=== PATIENT | male | born 1935 | race Caucasian/White ===

== ENCOUNTER 2016-09-19 07:57 | Day surgery (SDC) | payer OTHER ==
[2016-09-14 10:04] VITALS: BMI 28.8
[2016-09-19] MEDS ORDERED: ACETAMINOPHEN 500 MG TABLET (FP) PO PRN (08:59)
[2016-09-19] MEDS ORDERED: BACITRACIN 3.5 GM OPTHALMIC OINT TUBE ONE (09:11)
[2016-09-19] MEDS ORDERED: LIDOCAINE 1%/EPI 1:100000 (20 ML MULTI DOSE VIAL) ONE (09:12)
[2016-09-19] MEDS ORDERED: TETRACAINE 0.5% OPHTH SOLN 2 ML BOTTLE ONE (09:12)
[2016-09-19] MEDS ORDERED: POVIDONE-IODINE 5% OPHTHALMIC PREP 30 ML SOLUTION ONE (09:12)
[2016-09-19] MEDS ORDERED: BUPIVACAINE HCL/PF 0.5% (5MG/ML) 10 ML VIAL ONE (09:12)
[2016-09-19] MEDS ORDERED: PROPOFOL 20 ML ONE (09:15)
[2016-09-19] MEDS ORDERED: MIDAZOLAM HCL 2 MG/2 ML SINGLE DOSE VIAL ONE (09:15)
[2016-09-19] MEDS ORDERED: CLINDAMYCIN PHOSPHATE 600 MG/4 ML VIAL ONE (10:14)
[2016-09-19] MEDS ORDERED: LACTATED RINGERS SOLUTION 1,000 ML IV SCH (11:00)
[2016-09-19] MEDS ORDERED: ONDANSETRON 4 MG/2 ML VIAL IVPUSH PRN (11:16)
[2016-09-19] MEDS ORDERED: oxyCODONE HCL 5 MG TABLET PO PRN (11:16)
[2016-09-19] MEDS ORDERED: ACETAMINOPHEN 500 MG TABLET (FP) ONE (12:15)
[2016-09-19 17:23] VITALS: BP 124/70; PULSE 61; TEMP 97.9
--- NOTE | 2016-09-20 06:44 | OP ---
DATE OF OPERATION: 09/19/2016 PREOPERATIVE DIAGNOSIS: Involutional ectropion with epiphora, left lower lid. POSTOPERATIVE DIAGNOSIS: Involutional ectropion with epiphora, left lower lid. PROCEDURE: 1. Repair of ectropion, left lower lid, with lateral tarsal strip. 2. Conjunctivoplasty with inversion of punctum. 3. Minimal punctoplasty, left lower lid. 4. Quickert everting suture in nasal left lower lid. SURGEON: Isabella Cisneros MD ANESTHESIA: Local with sedation. COMPLICATIONS: None. ESTIMATED BLOOD LOSS: 1 to 2 mL. OPERATIVE REPORT: Patient was brought to the operating room, placed on the operating room table, vital signs monitored by Anesthesia. Tetracaine was placed in both eyes. Lateral canthal line was marked in left lateral canthus. The patient was given intravenous sedation after a timeout. A 50/50 mixture of 2% Xylocaine and 1:100,000 epinephrine and 0.5% Marcaine was injected subcutaneously in the lateral canthus down to the periosteum, lateral third of the upper and lower lid, and subconjunctivally in the nasal eyelid, a total of 2 to 3 mL. The patient was prepped and draped in usual sterile fashion, exposing both eyes. A lateral canthal incision was made with a 15 blade, carried down to the lateral orbital rim with a Lamar needle. The inferior cori of the lateral canthal tendon was from wound with sharp dissection. It was overlapped, marked with sterile marking pen, divided between anterior and posterior lamella. The anterior lamella was excised. The posterior lamella was denuded of epithelium posteriorly and superiorly. Then double-armed 5-0 Prolene reinforced with two 6-0 Vicryl lasso sutures was then passed through the tarsal strip and then through the orbital rim with the appropriate horizontal position made at the attachment of the superior cori and lateral canthal tendon. The lid was everted and a subpunctal conjunctiva retractor was excised with a Lamar needle. Below this, the retractors were then grasped with a double-armed 5-0 chromic, which was used to grasp the superior tarsal and then exited through the full-thickness eyelid nasally as a punctal inverting suture. This was tied. The lateral canthal angle was now reformed with a 5-0 chromic buried through the macdonald line of the upper and lower lid in a buried fashion, reforming the lateral canthus. The Prolene was tied, reattaching the lateral tarsal strip to the bone. Lateral to this, the muscle was closed with 5-0 chromic, and the skin was closed with interrupted 6-0 plain suture. There was a small tendency for eyelashes to rise up beyond the margin, and it could not be ascertained whether it was due to swelling or post-surgical change, therefore, double-armed 5-0 chromic was passed through the inferior fornix lateral to the punctum and then exited through the subciliary skin and was tied as a Quickert everting suture to reposition the lashes in a rather loose fashion. Bacitracin was placed in the eye and on the sutures in the nasal and temporal lower lid and lateral canthus, and the patient was taken to recovery room in stable condition. ISABELLA CISNEROS M.D. [id number]
--- NOTE | 2016-09-21 15:16 | PATH ---
Surgical Pathology Report Patient Name: BARRON ROMO JR [facility]. Rec. #: [id number] /Age/Gender: 1935 (Age: 81) / M Account: [id number] Location: [facility] AMBULATORY Taken: 09/19/2016 Received: 09/19/2016 Reported: 09/21/2016 Physicians: Gabriel Buchanan Specimen(s) Received ECTROPION LEFT LOWER EYELID Clinical History Ectropion left lower eyelid Final Diagnosis LEFT LOWER EYELID ECTROPION, REPAIR: FRAGMENT OF BENIGN SKIN. Electronically Signed Jung Marquez M.D. Gross Description Received in formalin labeled "ectropion left lower eyelid" is a 0.3 x 0.1 x 0.1 cm in irregular, unoriented skin fragment. The specimen is submitted in toto in one cassette. /09/20/201609/20/2016
== END 2016-09-19 12:50 | disposition home or self-care (01) ==
LOC: FASU 07:57
PROVIDERS: ATTEND Ophthalmology
PROC: 08SR0ZZ Reposition Left Lower Eyelid, Open Approach (ICD-10-PCS; principal; 2016-09-19 09:57)
DX: H02.105 Unspecified ectropion of left lower eyelid (principal); H04.202 Unspecified epiphora, left side
CPT/HCPCS: 88302-TC; 94760

== ENCOUNTER 2020-10-14 04:30 | Day surgery (SDC) | payer OTHER ==
[2020-10-11 10:31] VITALS: BMI 26.6
[2020-10-14] MEDS ORDERED: DEXMEDETOMIDINE HCL 200 MCG/2 ML IVPB ONE (06:50)
[2020-10-14] MEDS ORDERED: SUCCINYLCHOLINE CHLORIDE 200 MG/10 ML SYRINGE ONE ×2 (07:05→07:37)
[2020-10-14] MEDS ORDERED: KETAMINE HCL 200 MG/20 ML VIAL ONE (07:06)
[2020-10-14] MEDS ORDERED: PROPOFOL 20 ML ONE ×4 (07:06→08:39)
[2020-10-14] MEDS ORDERED: LIDOCAINE HCL/PF 2% SDV 5ML VIAL ONE (07:07)
[2020-10-14] MEDS ORDERED: HEPARIN NA (PORCINE) 5,000 UNITS/ML 1ML VIAL ONE (07:18)
[2020-10-14] MEDS ORDERED: LIDOCAINE HCL 1%, 10 MG/ML (20ML VIAL) ONE (07:19)
[2020-10-14] MEDS ORDERED: ceFAZolin SODIUM 1 GM VIAL IVPB ONE (07:58)
[2020-10-14] MEDS ORDERED: ceFAZolin SODIUM 1 GM VIAL ONE (07:58)
[2020-10-14] MEDS ORDERED: HEPARIN NA (PORCINE) 5,000 UNITS/ML 1ML VIAL IV ONE (08:07)
[2020-10-14] MEDS ORDERED: LIDOCAINE HCL 1%, 10 MG/ML (20ML VIAL) SQ ONE (08:08)
[2020-10-14] MEDS ORDERED: ONDANSETRON 4 MG/2 ML VIAL IVPUSH PRN (09:50)
[2020-10-14] MEDS ORDERED: oxyCODONE HCL 5 MG TABLET PO PRN ×2 (09:50)
[2020-10-14] MEDS ORDERED: CLOPIDOGREL BISULFATE 75 MG TABLET (FP) PO ONE (10:00)
[2020-10-14] MEDS ORDERED: LACTATED RINGERS SOLUTION 1,000 ML IV SCH (10:00)
[2020-10-14 10:25] VITALS: TEMP 97.8
[2020-10-14 11:45] VITALS: PULSE 66
[2020-10-14 11:51] VITALS: BP 166/84
== END 2020-10-14 11:40 | disposition home or self-care (01) ==
LOC: JASU-SURG 04:30
PROVIDERS: ATTEND Surgery Vascular Surgery
PROC: 047K3D1 Dilation of Right Femoral Artery with Intraluminal Device, using Drug-Coated Balloon, Percutaneous Approach (ICD-10-PCS; principal; 2020-10-14 07:30)
DX: I70.211 Atherosclerosis of native arteries of extremities with intermittent claudication, right leg (principal)
CPT/HCPCS: 37227; C1877; C2623; 76000-TC-FY; 94760; J1644

== ENCOUNTER 2022-11-10 06:25 | Inpatient (IN) | payer OTHER ==
[2022-11-10] MEDS ORDERED: ALBUTEROL SO4 2.5/IPRATROPIUM 0.5 INH SOL 3 ML VIAL.NEB. NEB ONE ×4 (06:28→06:49)
[2022-11-10 07:11] LABS: HEMATOCRIT 29.3 % (35.4-49); HEMOGLOBIN 9.2 GM/dL (11.7-16.9); MCH 28.4 pg (25.7-33.7); MCHC 31.5 g/dl (32.0-35.9); MEAN CELL VOLUME 90.3 fl (80-96); PLATELET COUNT 431 10^3/uL (134-434); RBC 3.24 M/mm3 (4.00-5.60); RDW 17.4 % (11.9-15.9)
[2022-11-10 07:12] LABS: VENOUS BASE EXCESS 4.7 mmol/L (-2-2); VENOUS O2 SATURATION 63.7 % (70-80); VENOUS PH 7.4 (7.310-7.410)
[2022-11-10 07:15] LABS: INR 1.88 (0.83-1.09); PROTHROMBIN TIME (PATIENT) 21.7 SEC (9.7-13.0)
[2022-11-10 07:18] LABS: ACTIVATED PTT 27.3 SECONDS (25.2-36.5)
[2022-11-10] MEDS ORDERED: VANCOMYCIN 1,000 MG in DEXTROSE 5%-WATER - 250 ML IVPB ONE (07:30)
[2022-11-10] MEDS ORDERED: CEFEPIME 2 GM in DEXTROSE 5%-WATER 100 ML IVPB ONE (07:30)
[2022-11-10] MEDS ORDERED: VANCOMYCIN 1 GRAM (PRE-DOCKED) 1,000 MG/250 ML BAG IVPB ONE (07:35)
[2022-11-10] MEDS ORDERED: CEFEPIME 2 GM/100 ML BAG IVPB ONE (07:35)
[2022-11-10] MEDS ORDERED: SODIUM CHLORIDE 0.9% 500 ML INFUS.BAG IV ONE (07:37)
[2022-11-10 07:48] LABS: POTASSIUM 4.7 mmol/L (3.5-5.1)
[2022-11-10 07:50] LABS: CALCIUM 8.3 mg/dL (8.5-10.1)
[2022-11-10 07:51] LABS: BLOOD UREA NITROGEN 38.8 mg/dL (7-18)
[2022-11-10 07:53] LABS: CREATININE 1.7 mg/dL (0.55-1.3)
[2022-11-10 07:55] LABS: BILIRUBIN,TOTAL 0.7 mg/dL (0.2-1)
[2022-11-10 07:57] LABS: LACTIC ACID 3.6 mmol/L (0.4-2.0)
[2022-11-10 08:23] LABS: PH,URINE 5.5 (5.0-8.0); URINE APPEARANCE CLEAR; URINE BILIRUBIN NEGATIVE (NEGATIVE); URINE COLOR YELLOW; URINE GLUCOSE (UA) NEGATIVE (NEGATIVE); URINE KETONE NEGATIVE (NEGATIVE); URINE LEUK ESTERASE NEGATIVE (NEGATIVE); URINE NITRITE NEGATIVE (NEGATIVE); URINE PROTEIN TRACE (NEGATIVE); URINE UROBILINOGEN 0.2 mg/dL (0.2-1.0)
[2022-11-10 08:27] LABS: N-TERMINAL BNP 4512.4 pg/ml (5-450)
[2022-11-10] MEDS ORDERED: AMIODARONE HCL 200 MG TABLET PO ONE (08:30)
[2022-11-10] MEDS ORDERED: METOPROLOL TARTRATE 25 MG TABLET (FP) PO ONE (08:54)
[2022-11-10] MEDS ORDERED: AMIODARONE HCL 200 MG TABLET ONE (08:56)
[2022-11-10] MEDS ORDERED: METOPROLOL TARTRATE 25 MG TABLET (FP) ONE (08:59)
[2022-11-10 09:10] LABS: ANISOCYTOSIS 1+; MACROCYTOSIS 1+
[2022-11-10 10:12] LABS: LACTIC ACID 3.1 mmol/L (0.4-2.0)
[2022-11-10] MEDS: HEPARIN NA (PORCINE) 5,000 UNITS/ML 1ML VIAL SQ SCH ×2 (14:45→22:46)
[2022-11-10] MEDS: CEFEPIME 1 GM in DEXTROSE 5%-WATER 100 ML IVPB SCH (22:47)
[2022-11-11] MEDS: HEPARIN NA (PORCINE) 5,000 UNITS/ML 1ML VIAL SQ SCH ×3 (06:10→23:03)
[2022-11-11 07:21] LABS: HEMOGLOBIN 8.3 GM/dL (11.7-16.9); MCHC 30.9 g/dl (32.0-35.9); MEAN CELL VOLUME 90.6 fl (80-96); MEAN PLT VOLUME 8.7 fl (7.5-11.1); PLATELET COUNT 329 10^3/uL (134-434); RBC 2.98 M/mm3 (4.00-5.60); RDW 17.4 % (11.9-15.9); WHITE BLOOD COUNT 21.4 K/mm3 (4.0-10.0)
[2022-11-11 07:39] LABS: POTASSIUM 4.2 mmol/L (3.5-5.1)
[2022-11-11 07:44] LABS: CALCIUM 8.3 mg/dL (8.5-10.1)
[2022-11-11 07:45] LABS: ALBUMIN 2.8 g/dl (3.4-5.0); BLOOD UREA NITROGEN 38.2 mg/dL (7-18); MAGNESIUM 2.5 mg/dL (1.8-2.4)
[2022-11-11 07:47] LABS: CREATININE 1.4 mg/dL (0.55-1.3)
[2022-11-11 07:48] LABS: BILIRUBIN,TOTAL 0.6 mg/dL (0.2-1)
[2022-11-11 07:49] LABS: TOT PROT 5.6 g/dl (6.4-8.2)
[2022-11-11] MEDS: CLOPIDOGREL BISULFATE 75 MG TABLET (FP) PO SCH (09:37)
[2022-11-11] MEDS: CEFEPIME 1 GM in DEXTROSE 5%-WATER 100 ML IVPB SCH ×2 (09:38→22:59)
[2022-11-11 11:00] LABS: ANISOCYTOSIS 0; HELMET CELLS 0; HOWELL-JOLLY BODIES 0; MACROCYTOSIS 0; OVALOCYTE 0; ROULEAU 0; SICKELED CELLS 0; TARGET CELLS 0; TEAR DROP CELLS 0; TOXIC GRANULATION 0
[2022-11-11] MEDS: METOPROLOL TARTRATE 5 MG/5 ML VIAL IVPUSH PRN (11:37)
[2022-11-11 12:13] LABS: ARTERIAL BLD GAS O2 SATURATION 91.9 % (95-98); ARTERIAL BLOOD GAS BASE EXCESS 4.4 mmol/L (-2-2); ARTERIAL BLOOD GAS PO2 62.5 mmHg (80-100); ARTERIAL BLOOD GAS pH 7.407 (7.350-7.450)
[2022-11-11 12:14] LABS: ALLENS TEST POSITIVE
[2022-11-11 12:15] LABS: VENT MODE S/T; VENT RATE 15
[2022-11-11] MEDS: VANCOMYCIN/WATER FOR INJ (PEG) 1,000 MG/200 ML BAG IVPB SCH (13:29)
[2022-11-11 23:59] VITALS: BMI 22.0
[2022-11-12] MEDS: HEPARIN NA (PORCINE) 5,000 UNITS/ML 1ML VIAL SQ SCH ×3 (07:32→21:53)
[2022-11-12] MEDS: METOPROLOL TARTRATE 5 MG/5 ML VIAL IVPUSH PRN (08:04)
[2022-11-12] MEDS: CEFEPIME 1 GM in DEXTROSE 5%-WATER 100 ML IVPB SCH ×2 (09:31→21:53)
[2022-11-12] MEDS: BACITRACIN ZINC 15 GM TUBE TOPICAL OINTMENT TP SCH (09:35)
[2022-11-12] MEDS: CLOPIDOGREL BISULFATE 75 MG TABLET (FP) PO SCH (09:36)
[2022-11-12] MEDS: MULTIVITAMINS (DAILY MVI) TABLET (FP) PO SCH (09:36)
[2022-11-12] MEDS: VANCOMYCIN/WATER FOR INJ (PEG) 1,000 MG/200 ML BAG IVPB SCH (12:04)
[2022-11-12] MEDS ORDERED: FUROSEMIDE 40 MG/4 ML INJECTABLE VIAL IVPUSH ONE (13:26)
[2022-11-12] MEDS ORDERED: ACETAMINOPHEN 500 MG TABLET (FP) PO ONE (22:37)
[2022-11-12] MEDS: MELATONIN 5 MG TABLETS PO PRN (22:50)
[2022-11-13] MEDS: HEPARIN NA (PORCINE) 5,000 UNITS/ML 1ML VIAL SQ SCH ×3 (06:22→21:28)
[2022-11-13 08:12] LABS: POTASSIUM 4.7 mmol/L (3.5-5.1)
[2022-11-13 08:14] LABS: ALBUMIN 2.4 g/dl (3.4-5.0); CALCIUM 8.7 mg/dL (8.5-10.1)
[2022-11-13 08:17] LABS: CREATININE 2.1 mg/dL (0.55-1.3)
[2022-11-13 08:19] LABS: BILIRUBIN,TOTAL 0.8 mg/dL (0.2-1); TOT PROT 5.4 g/dl (6.4-8.2)
[2022-11-13 08:25] LABS: HEMATOCRIT 30.5 % (35.4-49); MCH 27.1 pg (25.7-33.7); MCHC 29.5 g/dl (32.0-35.9); MEAN CELL VOLUME 91.9 fl (80-96); MEAN PLT VOLUME 9.4 fl (7.5-11.1); PLATELET COUNT 328 10^3/uL (134-434); RBC 3.32 M/mm3 (4.00-5.60); RDW 19.3 % (11.9-15.9)
[2022-11-13 08:38] LABS: BLOOD UREA NITROGEN 73.1 mg/dL (7-18)
[2022-11-13 08:46] LABS: WHITE BLOOD COUNT 36.3 K/mm3 (4.0-10.0)
[2022-11-13] MEDS: CEFEPIME 1 GM in DEXTROSE 5%-WATER 100 ML IVPB SCH (09:10)
[2022-11-13] MEDS: MULTIVITAMINS (DAILY MVI) TABLET (FP) PO SCH (09:11)
[2022-11-13] MEDS: CLOPIDOGREL BISULFATE 75 MG TABLET (FP) PO SCH (09:11)
[2022-11-13 09:45] LABS: ANISOCYTOSIS 1+; MACROCYTOSIS 0
[2022-11-13] MEDS: BACITRACIN ZINC 15 GM TUBE TOPICAL OINTMENT TP SCH (11:04)
[2022-11-13] MEDS: MEROPENEM 1 GM in DEXTROSE 5%-WATER 100 ML IVPB SCH ×2 (12:29→21:28)
[2022-11-13] MEDS ORDERED: FUROSEMIDE 40 MG/4 ML INJECTABLE VIAL IVPUSH ONE (13:00)
[2022-11-13] MEDS: MELATONIN 5 MG TABLETS PO PRN (21:30)
[2022-11-14] MEDS: HEPARIN NA (PORCINE) 5,000 UNITS/ML 1ML VIAL SQ SCH (06:24)
[2022-11-14 07:59] LABS: POTASSIUM 4.8 mmol/L (3.5-5.1)
[2022-11-14 08:04] LABS: CALCIUM 8.8 mg/dL (8.5-10.1)
[2022-11-14 08:05] LABS: ALBUMIN 2.6 g/dl (3.4-5.0); BLOOD UREA NITROGEN 90.9 mg/dL (7-18)
[2022-11-14 08:07] LABS: CREATININE 2.5 mg/dL (0.55-1.3); HEMATOCRIT 31.3 % (35.4-49); HEMOGLOBIN 9.4 GM/dL (11.7-16.9); MCH 27.4 pg (25.7-33.7); MCHC 29.9 g/dl (32.0-35.9); MEAN CELL VOLUME 91.7 fl (80-96); MEAN PLT VOLUME 9.6 fl (7.5-11.1); PLATELET COUNT 314 10^3/uL (134-434); RBC 3.42 M/mm3 (4.00-5.60); RDW 20.5 % (11.9-15.9)
[2022-11-14 08:08] LABS: BILIRUBIN,TOTAL 0.7 mg/dL (0.2-1); TOT PROT 5.8 g/dl (6.4-8.2)
[2022-11-14 08:40] LABS: WHITE BLOOD COUNT 35.5 K/mm3 (4.0-10.0)
[2022-11-14] MEDS ORDERED: PROPOFOL 1,000,000 MCG/100 ML VIAL IVPB SCH (08:45)
[2022-11-14] MEDS ORDERED: SODIUM CHLORIDE 500 ML IV STA (09:20)
[2022-11-14] MEDS ORDERED: AMIODARONE IN DEXTROSE,ISO-OSM 150 MG/100 ML BAG IVPB ONE (09:45)
[2022-11-14 09:53] LABS: INR 1.66 (0.83-1.09); PROTHROMBIN TIME (PATIENT) 19.2 SEC (9.7-13.0)
[2022-11-14 09:56] LABS: ACTIVATED PTT 26.7 SECONDS (25.2-36.5)
[2022-11-14 09:59] LABS: HEMATOCRIT 28.7 % (35.4-49); HEMOGLOBIN 8.4 GM/dL (11.7-16.9); MCH 27.7 pg (25.7-33.7); MCHC 29.3 g/dl (32.0-35.9); MEAN CELL VOLUME 94.4 fl (80-96); MEAN PLT VOLUME 9.1 fl (7.5-11.1); PLATELET COUNT 298 10^3/uL (134-434); RBC 3.05 M/mm3 (4.00-5.60)
[2022-11-14] MEDS ORDERED: MUPIROCIN 2% TOPICAL OINTMENT FOR DECOLONIZATION NS SCH (10:00)
[2022-11-14] MEDS ORDERED: AMIODARONE IN DEXTROSE,ISO-OSM 360 MG/200 ML BAG IV SCH ×2 (10:00→16:00)
[2022-11-14 10:05] LABS: POTASSIUM 5.6 mmol/L (3.5-5.1)
[2022-11-14 10:07] LABS: CALCIUM 8.5 mg/dL (8.5-10.1)
[2022-11-14 10:08] LABS: ALBUMIN 2.2 g/dl (3.4-5.0); BLOOD UREA NITROGEN 89.2 mg/dL (7-18)
[2022-11-14 10:13] LABS: BILIRUBIN,TOTAL 0.8 mg/dL (0.2-1); TOT PROT 5.2 g/dl (6.4-8.2)
[2022-11-14 10:17] LABS: ANISOCYTOSIS 0; HELMET CELLS 0; HOWELL-JOLLY BODIES 0; MACROCYTOSIS 0; OVALOCYTE 0; ROULEAU 0; SICKELED CELLS 0; TARGET CELLS 0; TEAR DROP CELLS 0; TOXIC GRANULATION 0
[2022-11-14 10:37] LABS: WHITE BLOOD COUNT 35.9 K/mm3 (4.0-10.0)
[2022-11-14 10:42] LABS: LACTIC ACID 9.9 mmol/L (0.4-2.0)
[2022-11-14 11:42] VITALS: BP 72/46; PULSE 81; RESP 18; TEMP 97.2
[2022-11-14] MEDS ORDERED: CHLORHEXIDINE GLUCONATE 4% CLEANSER FOR DECOLONIZATION TP SCH (22:00)
== END 2022-11-14 11:53 | disposition expired | DRG 208 ==
LOC: JER 06:25 → JERBED 08:08 → J4W 11:41 → JICU 11-14 08:53
PROVIDERS: ADMIT Family Medicine; ATTEND Family Medicine
PROC: 5A1935Z Respiratory Ventilation, Less than 24 Consecutive Hours (ICD-10-PCS; principal; 2022-11-14)
PROC: 0BH17EZ Insertion of Endotracheal Airway into Trachea, Via Natural or Artificial Opening (ICD-10-PCS; 2022-11-14)
PROC: 02HV33Z Insertion of Infusion Device into Superior Vena Cava, Percutaneous Approach (ICD-10-PCS; 2022-11-14)
DX: J18.9 Pneumonia, unspecified organism (principal); J96.21 Acute and chronic respiratory failure with hypoxia; J44.1 Chronic obstructive pulmonary disease with (acute) exacerbation; E87.20 Acidosis, unspecified; I13.0 Hypertensive heart and chronic kidney disease with heart failure and stage 1 through stage 4 chronic kidney disease, or unspecified chronic kidney disease; N17.9 Acute kidney failure, unspecified; I48.19 Other persistent atrial fibrillation; R64 Cachexia; E46 Unspecified protein-calorie malnutrition; I46.9 Cardiac arrest, cause unspecified; I25.10 Atherosclerotic heart disease of native coronary artery without angina pectoris; I50.9 Heart failure, unspecified; E78.5 Hyperlipidemia, unspecified; N18.30 Chronic kidney disease, stage 3 unspecified; K21.9 Gastro-esophageal reflux disease without esophagitis; Z68.22 Body mass index [BMI] 22.0-22.9, adult; E87.70 Fluid overload, unspecified
CPT/HCPCS: 0241U-QW; 36415; 36600; 71045-TC-FY; 80053; 81003; 82550; 82553; 82803; 82962; 83605; 83735; 83880; 84443; 84484; 85025; 85027; 85610; 85730; 86850; 86900; 86901; 87040; 87077; 87081; 87086; 87899; 93005; 93010; 93306-TC; 94660; 99291; 99292; G0480; J0282; J1644